=== PATIENT | male | born 1970 | race African-American/Black ===

== ENCOUNTER 2019-10-16 10:24 | Emergency (ER) | payer OTHER ==
[~2019-10-16] VITALS: Ht 177.8 cm; Wt 95.3 kg
[2019-10-16] MEDS ORDERED: NORCO 5-325 TA1 EAC1 PO (11:56)
[2019-10-16 12:04] VITALS: BP 147/73
== END 2019-10-16 12:06 | disposition home or self-care (01) ==
LOC: M.ERS 10:24
DX: S97.81XA Crushing injury of right foot, initial encounter (principal); V49.9XXA Car occupant (driver) (passenger) injured in unspecified traffic accident, initial encounter; Y93.89 Activity, other specified; Y92.89 Other specified places as the place of occurrence of the external cause; Y99.8 Other external cause status